=== PATIENT | female | born 1955 | race Caucasian/White ===

== ENCOUNTER 2019-03-01 14:12 | Inpatient (IN) | payer OTHER ==
[2019-03-01] MEDS ORDERED: Sodium Chloride 0.9% 10 ML Syringe FLUSH PRN (16:17)
[2019-03-01] MEDS ORDERED: Polyethylene Glycol 3350 Powder 17 GM Packet PO PRN (16:17)
[2019-03-01] MEDS ORDERED: Ondansetron 4 MG/2 ML SDV IV PRN (16:17)
--- NOTE | 2019-03-01 16:28 | PCM.HP ---
H&P History of Present Illness - General Date of Service: 03/01/19 Admit Problem/Dx: Admission Diagnosis/Problem Admission Diagnosis/Problem Pancreatitis Source of Information: Patient, Provider, RN Notes Reviewed History Limitations: Reports: No Limitations - History of Present Illness Initial Comments - Free Text/Narative: Ms. Gomez is a 63-year-old woman who is admitted as a direct admission from the clinic with supraumbilical and epigastric abdominal pain. She developed the pain 2 nights ago, very quickly after eating a pizza. Pain was very intense and the first night and has improved modestly since then but never resolved. She has been able to eat without developing recurrent pain. Pain is worse with deep breathing and movement. Because of persistent symptoms she was seen and evaluated clinic today by Dr. Posey. She was noted to have temperature elevation and elevation in white blood cell count. Liver enzymes were within normal range but lipase level was elevated at 900. Abdominal ultrasound was obtained showing no significant abnormalities of the gallbladder. She denies significant alcohol use or history of severe hyperlipidemia. Her only current medication other than supplements is metformin. Epigastric Pain Score (Numeric/FACES): 6 - Related Data Allergies/Adverse Reactions: Allergies Allergy/AdvReac Type Severity Reaction Status Date / Time No Known Allergies Allergy Verified 12/07/13 14:30 Home Medications: Home Meds Biotin 5,000 mcg PO DAILY 12/07/13 [History] Calcium Carbonate [Tums] 1,000 mg PO DAILY 12/07/13 [History] Cholecalciferol (Vitamin D3) [Vitamin D3] 2,000 unit PO BID 12/07/13 [History] Multivitamin [Vtm-Ljzubl-Uzpch] 1 each PO DAILY 12/07/13 [History] Vitamin B Complex [B Complex] 1 each PO DAILY 12/07/13 [History] Wheat Dextrin [Benefiber] 2 tsp PO DAILY 12/07/13 [History] metFORMIN [Glucophage] 500 mg PO BIDMEALS 03/01/19 [History] H&P Review of Systems - Review of Systems: Review Of Systems: See Below General: Reports: Chills, Weakness. Denies: Fever HEENT: Reports: No Symptoms Pulmonary: Reports: No Symptoms Cardiovascular: Reports: No Symptoms Gastrointestinal: Reports: Abdominal Pain, Decreased Appetite, Distension. Denies: Constipation, Diarrhea, Difficulty Swallowing, Nausea, Vomiting Genitourinary: Reports: No Symptoms Musculoskeletal: Reports: No Symptoms Skin: Reports: No Symptoms Psychiatric: Reports: No Symptoms Neurological: Reports: No Symptoms Hematologic/Lymphatic: Reports: No Symptoms Immunologic: Reports: No Symptoms Exam - Exam Exam: See Below - Exam Quality Assessment: DVT Prophylaxis General: Alert, Oriented, Cooperative, Moderate Distress HEENT: Conjunctiva Clear, Hearing Intact, Mucosa Moist & [place], Normal Nasal Septum, Posterior Pharynx Clear, Pupils Equal Neck: Supple, Trachea Midline, +2 Carotid Pulse wo Bruit Lungs: Clear to Auscultation, Normal Respiratory Effort Cardiovascular: Regular Rate, Regular Rhythm, Normal S1, Normal S2. No: Systolic Murmur, Diastolic Murmur GI/Abdominal Exam: Soft, Non-Tender, No Organomegaly, Distended, Tender. No: Guarding, Rigid, Rebound Back Exam: Normal Inspection, Full Range of Motion Extremities: Non-Tender, No Pedal Edema Skin: Warm, Dry, Intact Neurological: Cranial Nerves Intact, Strength Equal Bilateral, Normal Speech, Normal Tone, Sensation Intact. No: Focal Deficit Neuro Extensive - Mental Status: Alert, Oriented x3, Normal Mood/Affect, Normal Cognition, Memory Intact *Q Meaningful Use (ADM) - VTE Risk Assess *Q Each Risk Factor Represents 1 Point: Obesity ( BMI > 25 kg/m2) Total Score 1 Point Risk Factors: 1 Each Risk Factor Represents 2 Points: Age 60 - 74 Years Total Score 2 Point Risk Factors: 2 Each Risk Factor Represents 3 Points: None Total Score 3 Point Risk Factors: 0 Each Risk Factor Represents 5 Points: None Total Score 5 Point Risk Factors: 0 Venous Thromboembolism Risk Factor Score *Q: 3 Problem List Initiated/Reviewed/Updated: Yes Orders Last 24hrs: Active Orders 24 hr Category Date Time Status Patient Status [ADT] Routine ADT 03/01/19 16:17 Active Ambulate [RC] QID Care 03/01/19 16:17 Active Height and Weight [RC] DAILY Care 03/01/19 16:17 Active Intake and Output [RC] QSHIFT Care 03/01/19 16:17 Active Notify Provider Vital Signs [RC] ASDIRECTED Care 03/01/19 16:17 Active Oxygen Therapy [RC] PRN Care 03/01/19 16:17 Active Peripheral IV Care [RC] . DIRECTED Care 03/01/19 16:21 Active Up ad Vivi [RC] ASDIRECTED Care 03/01/19 16:17 Active Up to Chair [RC] QID Care 03/01/19 16:17 Active VTE/DVT Education [RC] Per Unit Routine Care 03/01/19 16:17 Active Vital Signs [RC] Q4H Care 03/01/19 16:17 Active Clear Liquid Diet [DIET] Diet 03/01/19 Lunch Active Abdomen Comp [US] Routine Exams 03/01/19 14:00 Taken CBC WITH AUTO DIFF [HEME] AM Lab 03/02/19 05:11 Ordered COMPREHENSIVE METABOLIC PN,CMP [CHEM] AM Lab 03/02/19 05:11 Ordered LIPASE [CHEM] Timed Lab 03/02/19 05:00 Ordered MAGNESIUM [CHEM] AM Lab 03/02/19 05:11 Ordered Acetaminophen [Tylenol] Med 03/01/19 16:17 Ordered 650 mg PO Q4H PRN Ampicillin/Sulbactam Na [Unasyn] 1.5 gm Med 03/01/19 16:30 Ordered Sodium Chloride 0.9% [Normal Saline] 50 ml IV Q6HR Aztreonam [Azactam] 1 gm Med 03/01/19 22:00 Ordered Sodium Chloride 0.9% [Normal Saline] 100 ml IV Q8HR Enoxaparin [Lovenox] Med 03/01/19 16:30 Ordered 40 mg SUBCUT DAILY HYDROmorphone [Dilaudid] Med 03/01/19 16:22 Ordered 0.5 mg IVPUSH Q2H PRN Lactated Ringers [Ringers, Lactated] 1,000 ml Med 03/01/19 16:30 Ordered IV ASDIRECTED Lactobacillus Rhamnosus GG [Culturelle] Med 03/01/19 16:30 Ordered 1 cap PO BID Ondansetron [Zofran] Med 03/01/19 16:17 Ordered 4 mg IV Q4H PRN Pantoprazole [ProTONIX IV] Med 03/01/19 16:30 Ordered 40 mg IV Q12H Polyethylene Glycol 3350 [MiraLAX] Med 03/01/19 16:17 Ordered 17 gm PO DAILY PRN Sodium Chloride 0.9% [Saline Flush] Med 03/01/19 16:17 Ordered 10 ml FLUSH ASDIRECTED PRN Peripheral IV Insertion Adult [OM.PC] Routine Oth 05/15/19 16:17 Ordered Resuscitation Status Routine Resus Stat 03/01/19 16:17 Ordered Medication Orders Acetaminophen (Tylenol) 650 mg PO Q4H PRN PRN Reason: Pain (Mild 1-3)/fever Enoxaparin Sodium (Lovenox) 40 mg SUBCUT DAILY OLIVIA Hydromorphone HCl (Dilaudid) 0.5 mg IVPUSH Q2H PRN PRN Reason: Pain Ampicillin Sodium/Sulbactam (Sodium 1.5 gm/ Sodium Chloride) 50 mls @ 100 mls/ hr IV Q6HR OLIVIA Aztreonam 1 gm/ Sodium (Chloride) 100 mls @ 200 mls/hr IV Q8HR OLIVIA Lactated Ringer's (Ringers, Lactated) 1,000 mls @ 125 mls/hr IV ASDIRECTED OLIVIA Lactobacillus Rhamnosus (Culturelle) 1 cap PO BID OLIVIA Ondansetron HCl (Zofran) 4 mg IV Q4H PRN PRN Reason: Nausea/Vomiting Pantoprazole Sodium (Protonix Iv) 40 mg IV Q12H OLIVIA Polyethylene Glycol (Miralax) 17 gm PO DAILY PRN PRN Reason: Constipation Sodium Chloride (Saline Flush) 10 ml FLUSH ASDIRECTED PRN PRN Reason: Keep Vein Open Assessment/Plan Comment:: ASSESSMENT AND PLAN EPIGASTRIC AND SUPRAUMBILICAL ABDOMINAL PAIN-present over the past 48 hours and associated with elevation in lipase level at 900, liver enzymes are within normal range. Associated temperature elevation and elevation in white blood cell count. Right upper quadrant abdominal ultrasound shows no obvious evidence of gallbladder disease. -CT scan of the abdomen and pelvis pending -Clear liquid diet -IV fluids for hydration -Medication for pain and nausea as needed -Empiric antibiotic therapy with Unasyn and Azactam, pending further evaluation -Repeat liver enzymes and lipase level in a.m. -Consider MRCP and/or CCK stimulated HIDA scan depending on results of CT scan as well as follow-up labs -Protonix 40 mg IV every 12 hours TYPE 2 DIABETES MELLITUS -Hold metformin -4 times a day glucometers -Low-dose sliding scale insulin MAINTENANCE ISSUES -DVT prophylaxis; Lovenox 40 mg subcutaneous daily -GI prophylaxis; Protonix as above -Ford catheter; not indicated -Nutrition; clear liquid diet -Nicotine dependence; not required CODE STATUS-DNR/DNI ADMISSION STATUS-patient will be admitted to inpatient status, expect at least a 2 night hospital stay for evaluation and management of problems as outlined above. At the time of this admission I do not reasonably expected evaluation and management of this problem will require more than a 96 hour hospital stay. DISPOSITION-anticipate discharge to home after completion of hospital stay PRIMARY CARE PROVIDER-Dr. Posey
[2019-03-01] MEDS: HYDROmorphone 0.5 MG/0.5 ML Syringe IVPUSH PRN ×2 (17:00→22:20)
[2019-03-01] MEDS ORDERED: Enoxaparin 40 MG/0.4 ML Syringe SUBCUT SCH (17:00)
[2019-03-01] MEDS ORDERED: Sodium Chloride 0.9% 100 ML IV SCH (17:15)
[2019-03-01] MEDS ORDERED: Iopamidol 612 MG/ML 150 ML Bottle IV SCH (17:15)
[2019-03-01] MEDS: Lactated Ringers 1,000 ML IV SCH (17:16)
[2019-03-01] MEDS ORDERED: 50% Dextrose in Water 50 ML Syringe IV PRN (17:27)
[2019-03-01] MEDS ORDERED: Glucose Gel 15 GM in 37.5 GM Tube PO PRN (17:27)
--- NOTE | 2019-03-01 17:49 | CRLUS ---
INDICATION: Upper abdominal pain. TECHNIQUE: Transabdominal imaging. COMPARISON: None. FINDINGS: The pancreas is predominantly obscured by bowel gas. Visualized abdominal aorta is normal in caliber. Liver is normal size with increased parenchymal echogenicity suggestive of fatty infiltration. There is a small cyst in the left lobe of the liver measuring 1 cm. Adjacent to the gallbladder fossa is an area of decreased attenuation, which may represent fatty sparing. No sludge or stones in the gallbladder. No gallbladder wall thickening. No intrahepatic or extrahepatic bile duct dilatation. The CBD measures 5 mm. Kidneys are normal in size with no evidence of hydronephrosis. Spleen is normal in size. No free fluid in the abdomen. IMPRESSION: 1. No evidence of cholelithiasis or acute cholecystitis. 2. Fatty infiltration of the liver with presumed fatty sparing seen adjacent to the gallbladder fossa. 3. Incidental hepatic cyst. Dictated by Benton Murray MD @ Mar 01 2019 5:47PM Signed by Dr. Benton Murray @ Mar 01 2019 5:47PM
[2019-03-01] MEDS: Ampicillin/Sulbactam Na 1.5 GM in Sodium Chloride 0.9% 50 ML IV SCH ×2 (17:56→23:09)
[2019-03-01] MEDS: Lactobacillus Rhamnosus GG (Probiotic) Cap PO SCH ×2 (17:57→21:17)
[2019-03-01] MEDS: Pantoprazole 40 MG Vial IV SCH (17:58)
--- NOTE | 2019-03-01 18:27 | CRLCT ---
INDICATION: Supraumbilical abdominal pain TECHNIQUE: CT abdomen and pelvis acquired with 144 cc Isovue-300 IV contrast. COMPARISON: Abdominal ultrasound from same date FINDINGS: Lower chest: Unremarkable. Liver: Hepatic steatosis. Subcentimeter cyst in the left hepatic lobe. Spleen: Unremarkable. Pancreas: Mild fat stranding around the pancreatic head no peripancreatic fluid collection. Gallbladder and bile ducts: Unremarkable. Adrenal glands: Unremarkable. Kidneys: Unremarkable. GI tract: Unremarkable. Appendix is not seen. Vascular structures: Unremarkable. Lymph nodes: Unremarkable. Miscellaneous: Unremarkable. No free air or significant free fluid. Pelvic Organs: Unremarkable. Bones: Unremarkable for age. IMPRESSION: Findings concerning for acute pancreatitis. Correlate with lipase. Gallstone identified. Hepatic steatosis. Please note that all CT scans at this facility use dose modulation, iterative reconstruction, and/or weight-based dosing when appropriate to reduce radiation dose to as low as reasonably achievable. Dictated by Nidia Jackson MD @ Mar 01 2019 6:16PM Signed by Dr. Nidia Jackson @ Mar 01 2019 6:25PM
[2019-03-01] MEDS: Insulin Lispro 100 Unit/ML 3 ML KwikPen SUBCUT SCH (21:17)
[2019-03-02] MEDS: HYDROmorphone 0.5 MG/0.5 ML Syringe IVPUSH PRN ×7 (00:54→19:40)
[2019-03-02] MEDS ORDERED: diphenhydrAMINE 50 MG/ML SDV IVPUSH PRN (03:21)
[2019-03-02] MEDS: Lactated Ringers 1,000 ML IV SCH (03:31)
[2019-03-02] MEDS: Pantoprazole 40 MG Vial IV SCH ×2 (05:14→17:25)
[2019-03-02] MEDS: Ampicillin/Sulbactam Na 1.5 GM in Sodium Chloride 0.9% 50 ML IV SCH ×3 (05:14→18:24)
[2019-03-02] MEDS: Insulin Lispro 100 Unit/ML 3 ML KwikPen SUBCUT SCH ×4 (07:30→21:26)
[2019-03-02] MEDS ORDERED: Magnesium Sulfate/Water 2 GM in Premix Bag 1 BAG IV ONE ×2 (08:35→10:00)
[2019-03-02] MEDS ORDERED: Magnesium Oxide 400 MG Tab PO SCH (09:00)
[2019-03-02] MEDS: Magnesium Oxide 400 MG Tab PO SCH ×2 (09:40→22:01)
[2019-03-02] MEDS: Lactobacillus Rhamnosus GG (Probiotic) Cap PO SCH ×2 (09:40→22:01)
[2019-03-02] MEDS: Acetaminophen 325 MG Tab PO PRN ×2 (15:53→22:04)
--- NOTE | 2019-03-02 15:59 | PCM.PN ---
- General Info Date of Service: 03/02/19 Subjective Update: Ms. Gomez is noted mild improvement in her pain over the last 24 hours. Vital signs have been stable and she has remained afebrile. Lipase level has normalized, white blood cell count remains elevated. CT scan abdomen and pelvis obtained after admission did document pancreatitis, gallbladder and ducts appeared to be within normal range. CCK stimulated HIDA scan obtained this morning shows an ejection fraction of 20%. - Review of Systems General: Reports: Weakness. Denies: Fever, Chills Pulmonary: Reports: No Symptoms Cardiovascular: Reports: No Symptoms Gastrointestinal: Reports: Abdominal Pain, Decreased Appetite. Denies: Difficulty Swallowing, Nausea, Vomiting - Patient Data Vitals - Most Recent: Last Vital Signs Temp 99.6 F 03/02/19 15:53 Pulse 90 03/02/19 14:27 Resp 18 03/02/19 14:27 BP 135/55 L 03/02/19 14:27 Pulse Ox 93 L 03/02/19 14:27 Weight - Most Recent: 212 lb 11.937 oz I&O - Last 24 Hours: Intake & Output 03/02/19 03/02/19 03/02/19 06:59 14:59 22:59 Intake Total 1327 120 Output Total 400 Balance 1327 -280 Lab Results Last 24 Hours: Laboratory Results - last 24 hr 03/02/19 03/02/19 03/02/19 Range/Units 05:00 05:00 05:00 WBC 15.3 H (4.5-11.0) K/uL RBC 3.89 (3.30-5.50) M/uL Hgb 11.6 L (12.0-15.0) g/dL Hct 36.0 (36.0-48.0) % MCV 93 (80-98) fL MCH 30 (27-31) pg MCHC 32 (32-36) % Plt Count 234 (150-400) K/uL Neut % (Auto) 69 H (36-66) % Lymph % (Auto) 23 L (24-44) % Taylor % (Auto) 8 H (2-6) % Eos % (Auto) 1 L (2-4) % Baso % (Auto) 0 (0-1) % Sodium 135 L (140-148) mmol/L Potassium 4.0 (3.6-5.2) mmol/L Chloride 101 (100-108) mmol/L Carbon Dioxide 27 (21-32) mmol/L Anion Gap 11.0 (5.0-14.0) mmol/L BUN 11 (7-18) mg/dL Creatinine 0.9 (0.6-1.0) mg/dL Est Cr Clr Drug Dosing 49.95 mL/min Estimated GFR (MDRD) > 60 (>60) Glucose 176 H (74-106) mg/dL Calcium 8.6 (8.5-10.1) mg/dL Magnesium 1.7 L (1.8-2.4) mg/dL Total Bilirubin 0.5 (0.2-1.0) mg/dL AST 25 (15-37) U/L ALT 61 (12-78) U/L Alkaline Phosphatase 65 (46-116) U/L Total Protein 6.6 (6.4-8.2) g/dL Albumin 3.0 L (3.4-5.0) g/dL Globulin 3.6 H (2.3-3.5) g/dL Albumin/Globulin Ratio 0.8 L (1.2-2.2) Lipase 354 (73-393) U/L Med Orders - Current: Current Medications Acetaminophen (Tylenol) 650 mg PO Q4H PRN PRN Reason: Pain (Mild 1-3)/fever Last Admin: 03/02/19 15:53 Dose: 650 mg Dextrose (Glutose 15) 15 gm PO ASDIRECTED PRN PRN Reason: Hypoglycemia Dextrose/Water (Dextrose 50% In Water) 50 ml IV ASDIRECTED PRN PRN Reason: Hypoglycemia Diphenhydramine HCl (Benadryl) 25 mg IVPUSH Q4H PRN PRN Reason: Itching Last Admin: 03/02/19 06:25 Dose: 25 mg Hydromorphone HCl (Dilaudid) 0.5 mg IVPUSH Q2H PRN PRN Reason: Pain Last Admin: 03/02/19 15:23 Dose: 0.5 mg Ampicillin Sodium/Sulbactam (Sodium 1.5 gm/ Sodium Chloride) 50 mls @ 100 mls/ hr IV Q6H OLIVIA Last Admin: 03/02/19 12:41 Dose: 100 mls/hr Aztreonam 1 gm/ Sodium (Chloride) 50 mls @ 100 mls/hr IV Q8H [facility] Last Admin: 03/02/19 12:06 Dose: 100 mls/hr Lactated Ringer's (Ringers, Lactated) 1,000 mls @ 75 mls/hr IV ASDIRECTED [facility] Insulin Human Lispro (Humalog) 0 unit SUBCUT QIDACANDBED [facility]; Protocol Last Admin: 03/02/19 11:44 Dose: Not Given Lactobacillus Rhamnosus (Culturelle) 1 cap PO BID [facility] Last Admin: 03/02/19 09:40 Dose: 1 cap Magnesium Oxide (Magnesium Oxide) 400 mg PO BID [facility] Last Admin: 03/02/19 09:40 Dose: 400 mg Ondansetron HCl (Zofran) 4 mg IV Q4H PRN PRN Reason: Nausea/Vomiting Last Admin: 03/02/19 08:51 Dose: 4 mg Pantoprazole Sodium (Protonix Iv) 40 mg IV Q12H [facility] Last Admin: 03/02/19 05:14 Dose: 40 mg Polyethylene Glycol (Miralax) 17 gm PO DAILY PRN PRN Reason: Constipation Sodium Chloride (Saline Flush) 10 ml FLUSH ASDIRECTED PRN PRN Reason: Keep Vein Open Last Admin: 03/01/19 17:54 Dose: 10 ml Discontinued Medications Enoxaparin Sodium (Lovenox) 40 mg SUBCUT QPM [facility] Last Admin: 03/01/19 17:58 Dose: 40 mg Lactated Ringer's (Ringers, Lactated) 1,000 mls @ 125 mls/hr IV ASDIRECTED [facility] Last Admin: 03/02/19 03:31 Dose: 125 mls/hr Sodium Chloride (Normal Saline) 100 mls @ 3 mls/sec IV ASDIRECTED [facility] Stop: 03/01/19 17:16 Last Admin: 03/01/19 17:53 Dose: 3 mls/sec Magnesium Sulfate 2 gm/ Premix 50 mls @ 25 mls/hr IV ONETIME ONE Stop: 03/02/19 11:59 Last Admin: 03/02/19 09:40 Dose: 25 mls/hr Magnesium Sulfate 2 gm/ Premix 50 mls @ 25 mls/hr IV ONETIME ONE Stop: 03/02/19 10:34 Last Admin: 03/02/19 09:52 Dose: Not Given Iopamidol (Isovue-300 (61%)) 150 ml IV . DIRECTED OLIVIA Stop: 03/01/19 17:16 Last Admin: 03/01/19 17:53 Dose: 150 ml Magnesium Oxide (Magnesium Oxide) 400 mg PO BID OLIVIA - Exam Quality Assessment: DVT Prophylaxis General: Alert, Oriented, Cooperative, Moderate Distress Lungs: Clear to Auscultation, Normal Respiratory Effort Cardiovascular: Regular Rate, Regular Rhythm, No Murmurs GI/Abdominal Exam: Soft, No Organomegaly, Distended, Tender. No: Guarding, Rigid, Rebound Extremities: Non-Tender, No Pedal Edema - Problem List Review Problem List Initiated/Reviewed/Updated: Yes - My Orders Last 24 Hours: My Active Orders 03/01/19 16:17 Patient Status [ADT] Routine Ambulate [RC] QID Height and Weight [RC] DAILY Intake and Output [RC] QSHIFT Notify Provider Vital Signs [RC] ASDIRECTED Oxygen Therapy [RC] PRN Up ad Vivi [RC] ASDIRECTED Up to Chair [RC] QID Vital Signs [RC] Q4H Acetaminophen [Tylenol] 650 mg PO Q4H PRN Ondansetron [Zofran] 4 mg IV Q4H PRN Polyethylene Glycol 3350 [MiraLAX] 17 gm PO DAILY PRN Sodium Chloride 0.9% [Saline Flush] 10 ml FLUSH ASDIRECTED PRN Peripheral IV Insertion Adult [OM.PC] Routine Resuscitation Status Routine 03/01/19 16:21 Peripheral IV Care [RC] . DIRECTED 03/01/19 16:22 HYDROmorphone [Dilaudid] 0.5 mg IVPUSH Q2H PRN 03/01/19 17:00 Lactobacillus Rhamnosus GG [Culturelle] 1 cap PO BID 03/01/19 17:27 Blood Glucose Check, Bedside [RC] QIDACANDBED Diabetes Education [RC] Click to Edit Notify Provider [RC] PRN Dextrose 50% in Water 50 ml IV ASDIRECTED PRN Dextrose [Glutose 15] 15 gm PO ASDIRECTED PRN 03/01/19 17:30 Pantoprazole [ProTONIX IV] 40 mg IV Q12H 03/01/19 18:00 Ampicillin/Sulbactam Na [Unasyn] 1.5 gm Sodium Chloride 0.9% [Normal Saline] 50 ml IV Q6H 03/01/19 20:00 Aztreonam [Azactam] 1 gm Sodium Chloride 0.9% [Normal Saline] 50 ml IV Q8H Insulin Lispro [HumaLOG] See Protocol SUBCUT QIDACANDBED 03/02/19 08:00 Cholescintigraphy w Pharm Int [NM] Urgent 03/02/19 09:00 Magnesium Oxide 400 mg PO BID 03/02/19 15:45 Antiembolic Devices [RC] .Routine Sequential Compression Device [OM.PC] Routine 03/02/19 15:48 Consult to Physician [CONS] Routine 03/02/19 15:52 Notify Provider Consults [RC] ASDIRECTED 03/02/19 16:00 Lactated Ringers [Ringers, Lactated] 1,000 ml IV ASDIRECTED 03/02/19 16:30 GLUCOSE POC LAB TO COLLECT [POC] QIDACANDBED 03/02/19 21:00 GLUCOSE POC LAB TO COLLECT [POC] QIDACANDBED 03/03/19 07:30 GLUCOSE POC LAB TO COLLECT [POC] QIDACANDBED 03/03/19 11:30 GLUCOSE POC LAB TO COLLECT [POC] QIDACANDBED 03/03/19 16:30 GLUCOSE POC LAB TO COLLECT [POC] QIDACANDBED 03/03/19 21:00 GLUCOSE POC LAB TO COLLECT [POC] QIDACANDBED 03/03/19 Breakfast NPO After Midnight [Nothing per Oral After Midnight Diet] [DIET] 03/04/19 07:30 GLUCOSE POC LAB TO COLLECT [POC] QIDACANDBED 03/04/19 11:30 GLUCOSE POC LAB TO COLLECT [POC] QIDACANDBED 03/04/19 16:30 GLUCOSE POC LAB TO COLLECT [POC] QIDACANDBED 03/04/19 21:00 GLUCOSE POC LAB TO COLLECT [POC] QIDACANDBED 03/05/19 07:30 GLUCOSE POC LAB TO COLLECT [POC] QIDACANDBED 03/05/19 11:30 GLUCOSE POC LAB TO COLLECT [POC] QIDACANDBED 03/05/19 16:30 GLUCOSE POC LAB TO COLLECT [POC] QIDACANDBED 03/05/19 21:00 GLUCOSE POC LAB TO COLLECT [POC] QIDACANDBED 03/06/19 07:30 GLUCOSE POC LAB TO COLLECT [POC] QIDACANDBED 03/06/19 11:30 GLUCOSE POC LAB TO COLLECT [POC] QIDACANDBED 03/06/19 16:30 GLUCOSE POC LAB TO COLLECT [POC] QIDACANDBED - Plan Plan:: ASSESSMENT AND PLAN PANCREATITIS AND CHOLECYSTITIS-CT scan abdomen and pelvis showed evidence of pancreatitis, CCK stimulated HIDA scan shows a gallbladder ejection fraction 20% . She is experienced persistent supraumbilical and epigastric abdominal pain, white blood cell count remains elevated, since admission there been no significant temperature elevations -Surgical consult, Dr. Almonte -Clear liquid diet, nothing by mouth after midnight -IV fluids for hydration -Medication for pain and nausea as needed -Unasyn and Azactam -Repeat liver enzymes and lipase level in a.m. -Protonix 40 mg IV every 12 hours TYPE 2 DIABETES MELLITUS -Hold metformin -4 times a day glucometers -Low-dose sliding scale insulin MAINTENANCE ISSUES -DVT prophylaxis; Lovenox 40 mg subcutaneous daily -GI prophylaxis; Protonix as above -Ford catheter; not indicated -Nutrition; clear liquid diet -Nicotine dependence; not required CODE STATUS-DNR/DNI ADMISSION STATUS-patient will be admitted to inpatient status, expect at least a 2 night hospital stay for evaluation and management of problems as outlined above. At the time of this admission I do not reasonably expected evaluation and management of this problem will require more than a 96 hour hospital stay. DISPOSITION-anticipate discharge to home after completion of hospital stay PRIMARY CARE PROVIDER-Dr. Posey
[2019-03-02] MEDS ORDERED: Lactated Ringers 1,000 ML IV SCH (16:00)
[2019-03-03] MEDS: Ampicillin/Sulbactam Na 1.5 GM in Sodium Chloride 0.9% 50 ML IV SCH ×5 (00:05→23:50)
[2019-03-03] MEDS: HYDROmorphone 0.5 MG/0.5 ML Syringe IVPUSH PRN ×3 (02:14→09:35)
[2019-03-03] MEDS: Pantoprazole 40 MG Vial IV SCH (05:37)
[2019-03-03] MEDS ORDERED: Bupivacaine 0.5%/EPINEPHrine 1:200,000 50 ML MDV ONE (07:04)
[2019-03-03] MEDS ORDERED: Dextrose 5%-Lactated Ringers 1,000 ML IV SCH (08:00)
--- NOTE | 2019-03-03 08:11 | CRLNM ---
HEPATOBILIARY SCAN, 03/02/2019 CLINICAL HISTORY: Abdominal pain. TECHNIQUE: 5.15 mCi Tc99m labeled Mebrofenin has been given intravenously. Imaging has been performed at 60 minutes. Patient received 1.9 mcg of IV Kinevac for gallbladder ejection fraction. FINDINGS: Uptake by the liver is normal. The gallbladder is identified at 10 to 15 minutes. Small bowel activity is identified at 15 to 20 minutes. The patient has been given CCK and there is a suboptimal response. The calculated gallbladder ejection fraction is 20 percent. Normal is greater than 35 percent. Some increased small bowel activity is identified after CCK. IMPRESSION: 1. There is abnormal low gallbladder ejection fraction at 20 percent. This is suggestive of function of gallbladder disease. 2. The cystic and common bile ducts are patent. 3. Uptake by liver is within normal limits. PAKO CLEMENTE M.D. Diagnostic/Nuclear Medicine Radiologist Transcribed: 3:51 p.m. [email or web address] by: Pako Clemente MD @ 03/02/2019 5:39:00 PM (Electronically Signed)
[2019-03-03] MEDS: Insulin Lispro 100 Unit/ML 3 ML KwikPen SUBCUT SCH ×4 (08:30→21:06)
[2019-03-03] MEDS ORDERED: Ketamine 500 MG/5 ML MDV IV SCH (09:00)
[2019-03-03] MEDS ORDERED: Dexamethasone 4 MG/ML SDV ONE (09:04)
[2019-03-03] MEDS ORDERED: Rocuronium 50 MG/5 ML Vial ONE (09:04)
[2019-03-03] MEDS ORDERED: Glycopyrrolate 0.2 MG/ML 5 ML MDV ONE (09:04)
[2019-03-03] MEDS ORDERED: Ondansetron 4 MG/2 ML SDV ONE (09:04)
[2019-03-03] MEDS ORDERED: Propofol 200 MG/20 ML SDV ONE (09:04)
[2019-03-03] MEDS ORDERED: Succinylcholine 200 MG/10 ML MDV ONE (09:04)
[2019-03-03] MEDS ORDERED: Neostigmine Methylsulfate 1 MG/ML 5 ML Syringe ONE (09:04)
[2019-03-03] MEDS ORDERED: fentaNYL 250 MCG/5 ML SDV ONE (09:04)
[2019-03-03] MEDS ORDERED: Midazolam 1 MG/ML 2 ML SDV ONE (09:05)
[2019-03-03] MEDS ORDERED: Ampicillin/Sulbactam Na 1.5 GM in Sodium Chloride 0.9% 50 ML IV ONE (10:00)
[2019-03-03] MEDS ORDERED: Lactated Ringers 1,000 ML ONE (11:06)
--- NOTE | 2019-03-03 11:23 | PN ---
DATE OF SERVICE: 03/03/2019 SUBJECTIVE: She will be having a laparoscopic cholecystectomy today. Her vital signs have been stable. Activity is good. Pain is controlled. REVIEW OF SYSTEMS: Remainder of review of systems negative for any pertinent positives and negatives. OBJECTIVE: GENERAL: Keisah Gomez is a 63-year-old female. She is alert and oriented. VITAL SIGNS: TPR is 98.3, 89, 16. Blood pressure 119/75. HEENT: Negative. NECK: Supple. HEART: Regular rate and rhythm. LUNGS: Clear. ABDOMEN: Reveals minimal right upper quadrant tenderness. EXTREMITIES: Without peripheral edema. ASSESSMENT: Biliary dyskinesia, low ejection fraction on HIDA scan, and pancreatitis. PLAN: 1. Remain n.p.o. 2. Discontinue LR IV. 3. Rx D5 LR at 100 mL/h. 4. Unasyn 1.5 g broadcast operations engineer to OR. Orders to be written postoperatively. Evelyn Garcia PA-C /[phone]
[2019-03-03] MEDS ORDERED: HYDROmorphone 1 MG/ML Syringe IV PRN (12:51)
[2019-03-03] MEDS: Magnesium Oxide 400 MG Tab PO SCH (13:17)
[2019-03-03] MEDS: Lactobacillus Rhamnosus GG (Probiotic) Cap PO SCH ×2 (14:01→21:08)
[2019-03-03] MEDS: Acetaminophen/HYDROcodone 325-5 MG Tab PO PRN (21:05)
[2019-03-04] MEDS: Acetaminophen/HYDROcodone 325-5 MG Tab PO PRN ×2 (02:40→07:03)
[2019-03-04] MEDS ORDERED: Pantoprazole 40 MG Vial IV SCH (06:00)
[2019-03-04] MEDS: Ampicillin/Sulbactam Na 1.5 GM in Sodium Chloride 0.9% 50 ML IV SCH (06:08)
[2019-03-04] MEDS: Insulin Lispro 100 Unit/ML 3 ML KwikPen SUBCUT SCH (07:39)
[2019-03-04] MEDS: Lactobacillus Rhamnosus GG (Probiotic) Cap PO SCH (09:29)
--- NOTE | 2019-03-04 19:35 | DISCH ---
FINAL DIAGNOSES: 1. Acute pancreatitis likely related to common bile duct stone. 2. Subacute and chronic cholecystitis. 3. Large pericystic and peripancreatic inflammatory fluid collection. 4. Type 2 diabetes mellitus. OPERATIVE PROCEDURES: Done on 03/03/2019, diagnostic laparoscopy with: 1. Cholecystectomy. 2. Drainage of inflammatory fluid collection in the pericholecystic and peripancreatic area. SUMMARY: This 63-year-old female presenting with acute pancreatitis. On workup, it appeared this is probably biliary related. Given this, on 03/03/2019, once the pancreatitis had resolved, the patient underwent a cholecystectomy. The gallbladder was markedly inflamed at that time and there was also a large inflammatory reflection with localized peritonitis in the peripancreatic and pericholecystic areas related to that fluid collection. Postoperatively, she is tolerating diet and taking [place] 1 tablet q.4 hours. Labs this morning, bilirubin was 0.2 and blood sugar of 199. Plan will be to discharge home today. She will be on regular diet with a simple meals initially and continue home medications plus [place] 5/325 one tablet q.4 hours p.r.n. pain, #40. She will be following up with Dr. Almonte at [facility] on 03/15/2019.
--- NOTE | 2019-03-07 13:10 | OR ---
DATE OF PROCEDURE: 03/03/2019 PREOPERATIVE DIAGNOSIS: Chronic cholecystitis, status post pancreatitis. POSTOPERATIVE DIAGNOSIS: Subacute and chronic cholecystitis, status post pancreatitis with large inflammatory peripancreatic and pericholecystic inflammatory fluid collection. OPERATIVE PROCEDURES: Diagnostic laparoscopy with: 1. Cholecystectomy (95003). 2. Drainage of peripancreatic and pericholecystic inflammatory fluid collection (49144). ANESTHESIA: General. ASSISTANTS: Evelyn Garcai PA-C, and LUIS Baez. INDICATIONS FOR PROCEDURE: The patient was admitted earlier this week with pancreatitis. After workup, it appeared that this is most likely a gallstone pancreatitis, and the patient was noted to have some ongoing pain on compression over the gallbladder, as well as thickening of the gallbladder wall. Given this, the patient is to undergo a cholecystectomy at this time. Potential risks of the procedure were reviewed with the patient yesterday, including bleeding, infection, injury to underlying viscera, problems with stones migrating into the common bile duct resulting in additional episodes of pancreatitis, or need for additional treatment for control were all reviewed, and the patient wishes to proceed. DETAILS OF PROCEDURE: The patient was taken to the operating room and placed in a supine position. After general endotracheal anesthesia was induced, a transverse epigastric incision was made and peritoneal cavity entered under direct vision with an Optiview trocar and inflated to 15 mmHg pressure with CO2. The laparoscope was reinserted, and no underlying trocar insertion site injuries were seen. Following this, a 12-mm subumbilical trocar was placed and a 5-mm right abdominal trocar then also had been placed. Bilateral subcostal transversus abdominis plane blocks were then also injected. As one approached the gallbladder, some omentum was pulled up, and there was a large slightly tannish-colored fluid collection. This was associated with marked peritonitis involving an area around peripancreatic and pericholecystic areas. This area was evacuated and, after drainage, cultures of that fluid were obtained. This, in fact, was likely a result of combination of the cholecystitis and pancreatitis. Gallbladder itself was wagner, edematous, and densely distended consistent with a subacute cholecystitis. The dissection began at gallbladder neck and continued around the gallbladder neck/cystic duct junction. Once that area as well as the adjacent cystic artery were both identified, the cystic duct/gallbladder neck junction was evaluated. This was noted to be quite thick-walled and friable. Given this, this was taken with a COURTNEY purple load, rather than clips. The cystic artery was more amenable to clips and was clipped 3 times proximally and divided distally with Harmonic Scalpel. The gallbladder was then dissected off the gallbladder bed using Harmonic scalpel and delivered through the epigastric trocar site. It contained some small stones and sludge, which were evacuated as part of the removal of the gallbladder via the suction. The area of dissection was inspected. No bleeding or bile leaks were seen. A Rupesh-Maradiaga drain was placed adjacent to the gallbladder bed and into the area of the inflammatory fluid collection. It was taken out through the right lateral trocar site. The trocars were then sequentially removed. The fascia at the 12 mm sites was closed with 0 Vicryl stitch and skin with 4-0 Vicryl skin stitch. Dressing was applied. The patient was taken to the recovery room in a satisfactory condition. There were no evident complications. Physician physician's assistant, Evelyn Garcia, played an essential role in assisting in this case, helping to position the patient, retract structures as needed, as well as suturing and cutting sutures when indicated. Her presence improved patient safety and decreased the operative time. Michael Almonte MD /[id number]
== END 2019-03-04 10:35 | disposition home or self-care (01) | DRG 417 ==
LOC: JP.US 14:12 → JP.MS 16:08
PROVIDERS: ADMIT Hospitalist; ATTEND Hospitalist
PROC: 0FT44ZZ Resection of Gallbladder, Percutaneous Endoscopic Approach (ICD-10-PCS; principal; 2019-03-03)
DX: K80.46 Calculus of bile duct with acute and chronic cholecystitis without obstruction (principal); K85.10 Biliary acute pancreatitis without necrosis or infection; K65.8 Other peritonitis; E11.9 Type 2 diabetes mellitus without complications; K82.8 Other specified diseases of gallbladder; E66.9 Obesity, unspecified; Z79.84 Long term (current) use of oral hypoglycemic drugs; Z79.899 Other long term (current) drug therapy; Z66 Do not resuscitate
CPT/HCPCS: 36415; 74177; 76700; 78227; 80053; 82150; 82962; 83690; 83735; 84100; 85025; 85027; 87070; 87075; 87205; 88304; A9270-GY; C9113; J0171; J0287; J0330; J1100; J1170; J1200; J1650; J1815; J2250; J2405; J2704; J2710; J2795; J3010; J3475; J3490; J7030; J7042; J7050; J7120

== ENCOUNTER → 2019-03-01 | Outpatient (CLI) | payer OTHER | END | disposition home or self-care (01) | LOC: JP.CT 15:28 | PROVIDERS: ATTEND Family Medicine | DX: R10.84 Generalized abdominal pain (principal); Z53.20 Procedure and treatment not carried out because of patient's decision for unspecified reasons | CPT/HCPCS: 82962 ==

== ENCOUNTER 2019-07-20 05:27 | Day surgery (SDC) | payer OTHER ==
[2019-07-20] MEDS ORDERED: Dextrose 5%-Lactated Ringers 1,000 ML IV SCH (06:00)
[2019-07-20] MEDS ORDERED: Midazolam 1 MG/ML 2 ML SDV ONE (07:08)
[2019-07-20] MEDS ORDERED: Propofol 200 MG/20 ML SDV ONE (07:08)
[2019-07-20] MEDS ORDERED: fentaNYL 100 MCG/2 ML SDV ONE (07:08)
--- NOTE | 2019-07-24 09:27 | OR ---
DATE OF PROCEDURE: 07/20/2019 SURGEON: Michael Almonte MD PREOPERATIVE DIAGNOSES: 1. Indications for screening colonoscopy. 2. Family history of colon carcinoma. POSTOPERATIVE DIAGNOSES: 1. Normal screening colonoscopy. 2. Family history of colon carcinoma. OPERATIVE PROCEDURE: Flexible colonoscopy. ANESTHESIA: IV sedation. INDICATION FOR PROCEDURE: A 63-year-old female presenting for followup screening colonoscopy. She does have a family history of colon carcinoma and this is on a 5-year schedule for her colonoscopies. Potential risks of the procedure including bleeding and perforation were discussed, and the patient wishes to proceed. DETAILS OF PROCEDURE: The patient was taken to the operating room and placed in a left lateral decubitus position. IV sedation was administered, after which the initial digital rectal exam was performed, which was unremarkable. Colonoscope was then passed into the rectum with retroflexion revealing uncomplicated hemorrhoidal columns. The scope was eventually passed to cecum. The prep was fairly good. There were some scattered balls of solid stool and some liquid stool present, but generally the vast majority of the mucosal surfaces were well visualized. To that level, the patient was noted to have no areas of diverticulosis, no areas of colitis, no polyps or other signs of neoplasia. The scope was then withdrawn and the above findings reconfirmed, and the procedure was then concluded. The patient was taken to the recovery room in satisfactory condition. Given the history of colon carcinoma in the family, the patient's next colonoscopy should be set for 5 years from this time. Michael Almonte MD /[id number]
== END 2019-07-20 08:46 | disposition home or self-care (01) ==
LOC: JP.SDS 05:27
PROVIDERS: ATTEND Surgery
DX: Z12.11 Encounter for screening for malignant neoplasm of colon (principal); K64.9 Unspecified hemorrhoids; E11.9 Type 2 diabetes mellitus without complications; E78.5 Hyperlipidemia, unspecified; E66.9 Obesity, unspecified; R79.89 Other specified abnormal findings of blood chemistry; Z88.8 Allergy status to other drugs, medicaments and biological substances; Z80.0 Family history of malignant neoplasm of digestive organs; Z68.37 Body mass index [BMI] 37.0-37.9, adult
CPT/HCPCS: J2250; J2704; J3010; J7042

== ENCOUNTER 2020-12-26 07:03 | Day surgery (SDC) | payer MEDICARE, BC ==
[2020-12-26] MEDS ORDERED: Sodium Chloride 0.9% 10 ML Syringe FLUSH PRN (07:30)
--- NOTE | 2020-12-26 14:25 | OR ---
DATE OF PROCEDURE: 12/26/2020 SURGEON: Nesha Shirley MD POSTOPERATIVE CARE: Postoperative care will be provided mainly at the [address] [place] [address] [facility] in conjunction with [facility]. PREOPERATIVE DIAGNOSIS: Cataract, left eye. POSTOPERATIVE DIAGNOSIS: Cataract, left eye. PROCEDURE: Phacoemulsification with intraocular lens placement, left eye. ANESTHESIA: Topical and intracameral. ESTIMATED BLOOD LOSS: Minimal. COMPLICATIONS: None. PATHOLOGY SPECIMENS: None. SURGICAL FINDINGS: None. INDICATION FOR PROCEDURE: The patient is a 65-year-old female with history of a visually significant cataract in the left eye, which interfered with activities of daily living. This consisted of a nuclear sclerosis cataract. Following careful discussion of the risks, benefits and alternatives to cataract extraction with intraocular lens placement including blindness and , the patient elected to proceed, and informed, written consent was obtained prior to the procedure. DESCRIPTION OF THE PROCEDURE: The patient was previously identified, and a bing placed above the left eye. All sources, including the patient, indicated that the left eye was the correct eye. The patient was subsequently taken to the operating room where standard monitors were applied. The patient was then prepped and draped in the usual sterile fashion for ophthalmic surgery. Attention was first directed at the 12 o'clock position where a paracentesis port was fashioned. Shugar solution followed by Viscoat was instilled into the eye. Attention was then directed to the 8:30 position where a triplanar incision was made in a near-clear manner using a keratome. A continuous capsulorrhexis was then made using a combination of the cystotome and Utrata forceps. Hydrodissection was achieved using a balanced salt solution, and the lens rotated nicely. Phacoemulsification was then done using a modified [id number] technique without complication. Phaco time was 5.40 CDE. The remaining cortex was removed using the irrigation/aspiration handpiece. Provisc was then instilled into the eye. A Technis lens, model DCB00, at 20.0 diopters was then placed in the capsular bag using an [employer] injector. The remaining viscoelastic was removed using the irrigation/aspiration forceps. All wounds were then checked and found to be watertight. The lid speculum and drapes were removed. Maxitrol ointment was placed in the patient's left eye, and the eye was shielded. The patient tolerated the procedure well. The patient was instructed to follow up tomorrow. All needle and sponge counts were correct at the end of the procedure. There were no surgical findings. Nesha Shirley MD /[id number]
== END 2020-12-26 08:46 | disposition home or self-care (01) ==
LOC: JP.SDS 07:03
PROVIDERS: ATTEND Ophthalmology
PROC: 08RK3JZ Replacement of Left Lens with Synthetic Substitute, Percutaneous Approach (ICD-10-PCS; principal; 2020-12-26)
DX: E11.36 Type 2 diabetes mellitus with diabetic cataract (principal); H25.12 Age-related nuclear cataract, left eye; E78.5 Hyperlipidemia, unspecified; E66.9 Obesity, unspecified; Z68.34 Body mass index [BMI] 34.0-34.9, adult; Z88.8 Allergy status to other drugs, medicaments and biological substances
CPT/HCPCS: V2632

== ENCOUNTER 2024-06-29 07:57 | Day surgery (SDC) | payer MEDICARE, BC ==
[2024-06-29] MEDS: Sodium Chloride 0.9% 10 ML Syringe FLUSH PRN (08:23)
== END 2024-06-29 09:54 | disposition home or self-care (01) ==
LOC: JP.SDS 07:57
PROVIDERS: ATTEND Ophthalmology
DX: E11.36 Type 2 diabetes mellitus with diabetic cataract (principal); H25.11 Age-related nuclear cataract, right eye
CPT/HCPCS: J3490; V2632

== ENCOUNTER 2025-03-28 07:05 | Day surgery (SDC) | payer MEDICARE, BC ==
[~2025-03-28 07:05] MED LIST: Midazolam 1 MG/ML 2 ML SDV ONE; Propofol 200 MG/20 ML SDV ONE; fentaNYL 50 MCG/ML SDV ONE
[2025-03-28] MEDS: Lactated Ringers 1,000 ML IV SCH (07:48)
== END 2025-03-28 10:28 | disposition home or self-care (01) ==
LOC: JP.SDS 07:05
PROVIDERS: ATTEND Surgery
DX: K51.40 Inflammatory polyps of colon without complications (principal); K64.8 Other hemorrhoids; E11.9 Type 2 diabetes mellitus without complications
CPT/HCPCS: 00811-QZ; J2250; J2704; J3010; J7120